=== PATIENT | female | born 1990 | race American Indian/Alaskan Native ===

== ENCOUNTER 2018-05-30 15:16 | Emergency (ER) | payer MEDICARE ==
[2018-05-30 15:43] VITALS: BMI 25.0
[2018-05-30 15:47] VITALS: RESP 20; TEMP 99.2
[2018-05-30 16:33] LABS: HCG,QUALITATIVE URINE NEGATIVE (NEGATIVE)
[2018-05-30] MEDS ORDERED: Penicillin G Benzathine 1.2 Mill Unit/2 ml Syr IM ONE ×2 (16:36→16:44)
[2018-05-30 16:37] LABS: SQUAMOUS EPITHIAL 7 /hpf (0-5); URINE BACTERIA OCC (<OCC); URINE BILIRUBIN NEGATIVE (NEGATIVE); URINE BLOOD NEGATIVE (NEGATIVE); URINE CLARITY Clear (Clear); URINE COLOR Yellow (YELLOW); URINE GLUCOSE (UA) NORMAL (Normal); URINE LEUKOCYTE ESTERASE TRACE Leu/uL (Negative); URINE PROTEIN NEGATIVE (NEGATIVE); URINE UROBILINOGEN NORMAL mg/dL (0.2-1.0)
[2018-05-30 16:44] LABS: BLOOD UREA NITROGEN 9 mg/dL (7-17); CALCIUM 9.8 mg/dl (8.6-10.4); GFR NON-AFRICAN AMERICAN > 60
[2018-05-30] MEDS ORDERED: Sodium Chloride 0.9% 1,000 ML ONE ×2 (16:44→16:59)
--- NOTE | 2018-05-30 16:45 | C.PDOC ---
History Of Present Illness 27 years old female with PMHx of SCD presents to ED for complaints of sore throat associated with subjective fever that began 2 days ago. Patient also reports mid chest pain with no SOB. Denies any other physical complaints. SORE THROAT, SUBJ FEVER X 2 DAYS. +MID CHEST PAIN NO SOB. HO SCD. DENIES OTHER ASSOC SX EXAM NONTOXIC HEENT +PHARYNGITIS W EXUDATE, MIN SWELL; NO DROOL, STRIDOR SUPPLE LUNGS CTA B/L NO W/R/R REMAINDER NEG Time Seen by Provider: 05/30/18 16:13 Chief Complaint (Nursing): Chest Pain History Per: Patient History/Exam Limitations: no limitations Onset/Duration Of Symptoms: Days (2) Current Symptoms Are (Timing): Still Present Recent travel outside of the [place]: No Past Medical History Reviewed: Historical Data, Nursing Documentation, Vital Signs Vital Signs: Last Vital Signs Temp 99.2 F 05/30/18 15:43 Pulse 78 05/30/18 15:43 Resp 20 05/30/18 15:43 BP 115/78 05/30/18 15:43 Pulse Ox 99 05/30/18 15:43 - Medical History PMH: Arthritis (left hip vascular necrosis), HTN, Kidney Stones, Sickle Cell Disease Denies: Chronic Kidney Disease Surgical History: Cholecystectomy - [facility] Procedures DESTRUCT-HIP LESION NEC (06/28/14) INSERTION OF INFUSION DEV INTO SUP VENA CAVA, PERC APPROACH (08/21/15) Family History: States: Unknown Family Hx - Social History Hx Tobacco Use: No Hx Alcohol Use: No Hx Substance Use: No - Immunization History Hx Tetanus Toxoid Vaccination: Yes Hx Influenza Vaccination: No Hx Pneumococcal Vaccination: No Review Of Systems Except As Marked, All Systems Reviewed And Found Negative. Constitutional: Positive for: Fever (Subjective ) ENT: Positive for: Other (Sore throat ) Cardiovascular: Positive for: Chest Pain (Mid Chest ) Physical Exam - Physical Exam Appears: Non-toxic, No Acute Distress Skin: Normal Color, Warm, Dry, No Rash Head: Atraumatic, Normacephalic Eye(s): bilateral: Normal Inspection, PERRL, EOMI Ear(s): Bilateral: Normal Nose: Normal, No Discharge Oral Mucosa: Moist Throat: Exudate (POSITIVE PHARYNGITIS WITH EXUDATE, MINIMAL SWELLING; NO DROOL, STRIDOR), No Drooling Neck: Supple Chest: Symmetrical, No Tenderness Cardiovascular: Rhythm Regular, No Murmur Respiratory: Normal Breath Sounds (Clear to Auscultation bilaterally ), No Decreased Breath Sounds, No Rales, No Rhonchi, No Wheezing, Other (NARD) Gastrointestinal/Abdominal: Bowel Sounds (Active), Soft, No Tenderness, No Distention, No Guarding, No Rebound Extremity: Bilateral: Atraumatic, Normal Color And Temperature, Normal ROM Pulses: Left Radial: Normal, Right Radial: Normal Neurological/Psych: Oriented x3, Normal Speech Gait: Steady ED Course And Treatment - Laboratory Results Result Diagrams: 05/30/18 17:14 05/30/18 16:28 ECG: Interpreted By Me, Viewed By Me ECG Rhythm: Sinus Rhythm (92), ST/T Changes (T- wave inversions 2-3f, V3. Unchanged from prior 04/13/18) O2 Sat by Pulse Oximetry: 99 (RA) Pulse Ox Interpretation: Normal - Other Rad CXR X-Ray: Viewed By Me, Read By Radiologist Interpretation: HISTORY: CHEST PAIN HO SCD. COMPARISON: None available. TECHNIQUE: Chest PA and lateral. FINDINGS: LUNGS: No focal consolidation. Please note that chest x-ray has limited sensitivity for the detection of pulmonary masses. PLEURA: No significant pleural effusion identified. No definite pneumothorax . CARDIOVASCULAR: Heart size appears top normal. OSSEOUS STRUCTURES: No acute osseous abnormality identified. VISUALIZED UPPER ABDOMEN: Unremarkable. OTHER FINDINGS: None. IMPRESSION: No focal consolidation, significant pleural effusion, or definite pneumothorax identified. Progress - Re-Evaluation Re-evaluation Note: 05/30/18 18:07 NAD APPEARS IMPROVED COMPARED TO INITIAL. VSS. PS THROAT PAIN RESOLVED, PERSIST LBP. VSS. NO UO SINCE IVF. PT CONTINUES TO REFUSE ADMISSION 05/30/18 18:57 PT REQUESTING DC. NAD NONTOXIC - Data Reviewed Data Reviewed: Lab, Diagnostic imaging, Old records Medical Decision Making Medical Decision Making: Plan: * IV fluids * Bicillin * Decadron * Dilaudid * Toradol * Blood work * CXR * UA Disposition Counseled Patient/Family Regarding: Studies Performed, Diagnosis, Need For Followup - Disposition Referrals: YOUR,PMD [Other] Disposition: HOME/ ROUTINE Disposition Time: 18:58 Condition: IMPROVED Instructions: Sore Throat, Adult (DC), Sickle Cell Disease (DC) Forms: [employer] (Turkish) - Clinical Impression Clinical Impression: Sickle-cell disease with pain, Pharyngitis
[2018-05-30 16:48] LABS: ALB/GLOB RATIO 1.3 (1.0-2.1); ALBUMIN 4.7 g/dL (3.5-5.0); ALT/SGPT 25 U/L (9-52); AST/SGOT 53 U/L (14-36)
[2018-05-30 17:17] LABS: BASO # 0.2 K/uL (0.0-0.2); BASO % 0.7 % (0.0-2.0); EOS # 0.3 K/uL (0.0-0.7); EOS % 1.4 % (0.0-4.0); HEMOGLOBIN 12.1 g/dL (11.0-16.0); LYMPH % 8.7 % (20.0-40.0); MEAN CELL VOLUME 101.5 fL (81.0-99.0); MEAN CORPUSCULAR HGB CONC 34.4 g/dL (33.0-37.0); MEAN PLATELET VOLUME 7.6 fL (7.2-11.7); MONO % 8.6 % (0.0-10.0); NEUT # 18.7 K/uL (1.8-7.0); NEUT % 80.6 % (50.0-75.0); NRBC % 0.1 % (0.0-2.0); PLATELET COUNT 290 K/uL (130-400); RBC 3.47 Mil/uL (3.80-5.20); RED CELL DISTRIBUTION WIDTH 15.9 % (11.5-14.5); WHITE BLOOD COUNT 23.2 K/uL (4.8-10.8)
--- NOTE | 2018-05-30 17:17 | RAD ---
HISTORY: CHEST PAIN HO SCD COMPARISON: None available. TECHNIQUE: Chest PA and lateral FINDINGS: LUNGS: No focal consolidation. Please note that chest x-ray has limited sensitivity for the detection of pulmonary masses. PLEURA: No significant pleural effusion identified. No definite pneumothorax . CARDIOVASCULAR: Heart size appears top normal. OSSEOUS STRUCTURES: No acute osseous abnormality identified. VISUALIZED UPPER ABDOMEN: Unremarkable. OTHER FINDINGS: None. IMPRESSION: No focal consolidation, significant pleural effusion, or definite pneumothorax identified.
[2018-05-30 17:50] LABS: EOSINOPHIL 1 % (0-4); LARGE PLATELETS PRESENT; LYMPHOCYTE 14 % (20-40); MONOCYTE 4 % (0-10); NEUTROPHIL 81 % (50-75); PLATELET ESTIMATE SLIGHTLY INCREASED (NORMAL); TOTAL CELLS COUNTED 100
[2018-05-30 17:57] VITALS: BP 115/74; PULSE 90
[2018-05-30 18:08] VITALS: O2SAT 99
--- NOTE | 2018-05-31 23:04 | CARD ---
APPROVED REPORT Date of service: 05/30/2018 EKG Measurement Heart [id number] CT [id number] [id number] <Conclusion> Normal sinus rhythm Possible Left atrial enlargement T wave abnormality, consider inferior ischemia Abnormal ECG
== END 2018-05-30 19:03 | disposition home or self-care (01) ==
LOC: C.ER 15:16
DX: J02.9 Acute pharyngitis, unspecified (principal); D57.1 Sickle-cell disease without crisis
CPT/HCPCS: 71046; 80053; 81001; 84484; 84703; 85025; 85044; 93005; 96361; 96372; 96374; 96375; 99285; J0561; J1100; J1885; J7030

== ENCOUNTER 2018-06-05 09:28 | Emergency (ER) | payer MEDICAID, MEDICARE ==
[2018-06-05 09:28] VITALS: BMI 25.0
[2018-06-05 09:36] VITALS: BP 110/65; PULSE 90; RESP 18; TEMP 98.4; O2SAT 97
[2018-06-05] MEDS ORDERED: Amoxicillin-Clav 875-125 mg Tab PO STA (09:59)
--- NOTE | 2018-06-05 10:02 | C.PDOC ---
History Of Present Illness 27 year old female presents to ED complaining of sore throat x1 week associated with body aches. Patient states she came to ED on 06/03 for same symptoms and received 1.2 million units of Bicillin with no improvement of symptoms. Patient reports she has been taking her pain medication without taking NSAIDs. Denies fever, chills, cough, shortness of breath, weakness, numbness. Time Seen by Provider: 06/05/18 09:44 Chief Complaint (Nursing): Cough, Cold, Congestion History Per: Patient History/Exam Limitations: None Onset/Duration Of Symptoms: Days Current Symptoms Are (Timing): Still Present Past Medical History Reviewed: Historical Data, Nursing Documentation, Vital Signs Vital Signs: Last Vital Signs Temp 98.4 F 06/05/18 09:30 Pulse 90 06/05/18 09:30 Resp 18 06/05/18 09:30 BP 110/65 06/05/18 09:30 Pulse Ox 97 06/05/18 09:30 - Medical History PMH: Arthritis (left hip vascular necrosis), HTN, Kidney Stones, Rheumatoid Arthritis, Sickle Cell Disease Denies: Chronic Kidney Disease Surgical History: Cholecystectomy - [facility] Procedures DESTRUCT-HIP LESION NEC (06/28/14) INSERTION OF INFUSION DEV INTO SUP VENA CAVA, PERC APPROACH (08/21/15) Family History: States: No Known Family Hx - Social History Hx Tobacco Use: No Hx Alcohol Use: No Hx Substance Use: No - Immunization History Hx Tetanus Toxoid Vaccination: Yes Hx Influenza Vaccination: No Hx Pneumococcal Vaccination: No Review Of Systems Except As Marked, All Systems Reviewed And Found Negative. Constitutional: Negative for: Fever, Chills ENT: Positive for: Throat Pain (Sore throat x1 week) Cardiovascular: Negative for: Chest Pain Respiratory: Negative for: Cough, Shortness of Breath Gastrointestinal: Negative for: Nausea, Vomiting Musculoskeletal: Positive for: Other (Generalized body aches.) Neurological: Negative for: Weakness, Numbness Physical Exam - Physical Exam Appears: Non-toxic, No Acute Distress Skin: Warm, Dry Head: Atraumatic, Normacephalic Eye(s): bilateral: PERRL, EOMI Oral Mucosa: Moist Gingiva: Other Throat: Exudate (Tonsilar bilateral exudative pharyngitis) Neck: Supple Lymphatic: Other ((+) submandibular lymphadenopathy) Chest: Symmetrical, No Deformity Cardiovascular: Rhythm Regular, No Murmur Respiratory: Normal Breath Sounds, No Rales, No Rhonchi, No Wheezing Gastrointestinal/Abdominal: Soft, No Tenderness Neurological/Psych: Oriented x3, Normal Speech ED Course And Treatment O2 Sat by Pulse Oximetry: 97 (RA) Pulse Ox Interpretation: Normal Medical Decision Making Medical Decision Making: + b/l exudative pharyngitis failed Bicillin 1.2M units given 05/30 Course with 9 days Augmentin PO NSAIDS for throat pain Disposition Doctor Will See Patient In The: Office Counseled Patient/Family Regarding: Studies Performed, Diagnosis - Disposition Referrals: Chris Lopez MD [Medical Doctor] - Disposition: HOME/ ROUTINE Disposition Time: 10:02 Condition: GOOD Additional Instructions: continue Augmentin (antibiotic) twice a day for 9 days Motrin/Advil 400-600 mg every 6 hours as needed for throat pain Follow-up with Dr. Lopez for re-eval in 2-3 days Prescriptions: Amoxicillin/Clavulanate [Augmentin 875 MG-125 MG] 1 tab PO BID #15 tab Instructions: Sore Throat, Adult (DC) Forms: [employer] (Irish) - Clinical Impression Clinical Impression: Tonsillitis with exudate - Scribe Statement The provider has reviewed the documentation as recorded by the Arpita Smallwood Kyler Provider Attestation: All medical record entries made by the Arpita were at my direction and personally dictated by me. I have reviewed the chart and agree that the record accurately reflects my personal performance of the history, physical exam, medical decision making, and the department course for this patient. I have also personally directed, reviewed, and agree with the discharge instructions and disposition.
[2018-06-05] MEDS ORDERED: Amoxicillin-Clav 875-125 mg Tab PO ONE (10:11)
== END 2018-06-05 10:26 | disposition home or self-care (01) ==
LOC: C.ER 09:28
DX: J03.90 Acute tonsillitis, unspecified (principal)

== ENCOUNTER 2018-07-14 19:48 | Emergency (ER) | payer MEDICARE ==
[2018-07-14 19:49] VITALS: BMI 25.0
[2018-07-14 20:17] VITALS: O2SAT 99
--- NOTE | 2018-07-14 21:42 | C.PDOC ---
History Of Present Illness Patient presents to the ER with a complaint of diffuse body aches. 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 She took 15mg oxycodon at 1600 with no relief. Patient is currently speaking in complete sentences. Denies fever, chills, nausea, or vomiting. Time Seen by Provider: 07/14/18 21:38 Chief Complaint (Nursing): Chest Pain History Per: Patient History/Exam Limitations: no limitations Onset/Duration Of Symptoms: Hrs Current Symptoms Are (Timing): Still Present Severity: Moderate Pain Scale Rating Of: 4 Quality: Dull, Aching Associated Symptoms: denies: Nausea, Dyspnea, Diaphoresis, Syncope Modifying Factors: None Exacerbating Factors: None Alleviating Factors: None Recent travel outside of the [place]: No Additional History Per: Patient Past Medical History Reviewed: Historical Data, Nursing Documentation, Vital Signs Vital Signs: Last Vital Signs Temp 98.3 F 07/14/18 20:17 Pulse 74 07/14/18 20:17 Resp 14 07/14/18 20:17 BP 107/63 07/14/18 20:17 Pulse Ox 99 07/14/18 20:17 - Medical History PMH: Arthritis (left hip vascular necrosis), HTN, Kidney Stones, Rheumatoid Arthritis, Sickle Cell Disease Denies: Chronic Kidney Disease Surgical History: Cholecystectomy - [facility] Procedures DESTRUCT-HIP LESION NEC (06/28/14) INSERTION OF INFUSION DEV INTO SUP VENA CAVA, PERC APPROACH (08/21/15) Family History: States: No Known Family Hx - Social History Hx Tobacco Use: No Hx Alcohol Use: No Hx Substance Use: No - Immunization History Hx Tetanus Toxoid Vaccination: Yes Hx Influenza Vaccination: No Hx Pneumococcal Vaccination: No Review Of Systems Constitutional: Negative for: Fever, Chills ENT: Negative for: Throat Pain Cardiovascular: Negative for: Chest Pain, Palpitations Respiratory: Negative for: Cough, Shortness of Breath Gastrointestinal: Negative for: Nausea, Vomiting Musculoskeletal: Positive for: Other (Diffuse body aches) Skin: Negative for: Rash Neurological: Negative for: Weakness, Numbness Psych: Negative for: Anxiety Physical Exam - Physical Exam Appears: Non-toxic, No Acute Distress Skin: Warm, Dry Head: Normacephalic Eye(s): bilateral: Normal Inspection Oral Mucosa: Moist Neck: Trachea Midline, Supple Chest: Symmetrical, No Tenderness Cardiovascular: Rhythm Regular Respiratory: No Rales, No Rhonchi, No Wheezing Gastrointestinal/Abdominal: Soft, No Tenderness Back: Normal Inspection Extremity: Normal ROM, Other (Moves all extremities) Extremity: Bilateral: Atraumatic, Normal Color And Temperature, Normal ROM Neurological/Psych: Oriented x3 Gait: Steady ED Course And Treatment - Laboratory Results Result Diagrams: 07/14/18 21:57 07/14/18 22:27 ECG: Interpreted By Me, Viewed By Me ECG Rhythm: Sinus Rhythm (76), Nonspecific Changes O2 Sat by Pulse Oximetry: 99 (Room air) Pulse Ox Interpretation: Normal - Radiology CXR: Interpreted by Me, Viewed By Me Progress Note: Blood work, EKG, flu swab, and urinalysis ordered. IV fluids administered. after her second dose of po dilaudid, pt wants to leave because she wanted to get the dilaudid IV. Pt appears in no acute distress, vitals stable. Disposition Counseled Patient/Family Regarding: Studies Performed, Diagnosis, Need For Followup - Disposition Referrals: [facility] [Outside] Disposition: HOME/ ROUTINE Disposition Time: 23:00 Condition: FAIR Additional Instructions: Please return if symptoms recur Instructions: Sickle Cell Disease (DC) Forms: [employer] [facility] (Indonesian) - Clinical Impression Clinical Impression: Sickle-cell disease with pain, Myalgia - Scribe Statement The provider has reviewed the documentation as recorded by the Scribmigel Arnold All medical record entries made by the Scribe were at my direction and personally dictated by me. I have reviewed the chart and agree that the record accurately reflects my personal performance of the history, physical exam, medical decision making, and the department course for this patient. I have also personally directed, reviewed, and agree with the discharge instructions and disposition.
[2018-07-14] MEDS ORDERED: Sodium Chloride 0.9% 1,000 ML IV ONE (21:45)
[2018-07-14 22:02] LABS: BASO # 0.2 K/uL (0.0-0.2); BASO % 1.6 % (0.0-2.0); EOS # 0.2 K/uL (0.0-0.7); EOS % 1.9 % (0.0-4.0); HEMOGLOBIN 12.3 g/dL (11.0-16.0); LYMPH # 4.8 K/uL (1.0-4.3); LYMPH % 50.2 % (20.0-40.0); MEAN CELL VOLUME 99.6 fL (81.0-99.0); MEAN CORPUSCULAR HEMOGLOBIN 34.9 pg (27.0-31.0); MEAN PLATELET VOLUME 7.6 fL (7.2-11.7); MONO # 1.1 K/uL (0.0-0.8); NEUT # 3.3 K/uL (1.8-7.0); NEUT % 34.3 % (50.0-75.0); NRBC % 0.2 % (0.0-2.0); RBC 3.54 Mil/uL (3.80-5.20); RED CELL DISTRIBUTION WIDTH 16.6 % (11.5-14.5); WHITE BLOOD COUNT 9.6 K/uL (4.8-10.8)
[2018-07-14 22:31] LABS: HCG,QUALITATIVE URINE NEGATIVE (NEGATIVE)
[2018-07-14 22:35] LABS: SQUAMOUS EPITHIAL 1 /hpf (0-5); URINE BILIRUBIN NEGATIVE (NEGATIVE); URINE BLOOD 1+ (NEGATIVE); URINE CLARITY Clear (Clear); URINE COLOR Yellow (YELLOW); URINE GLUCOSE (UA) NORMAL (Normal); URINE LEUKOCYTE ESTERASE TRACE Leu/uL (Negative); URINE PROTEIN NEGATIVE (NEGATIVE); URINE UROBILINOGEN NORMAL mg/dL (0.2-1.0)
[2018-07-14 22:42] LABS: INR 1.2; PROTHROMBIN TIME 12.8 SECONDS (9.7-12.2)
[2018-07-14 22:47] LABS: ALB/GLOB RATIO 1.4 (1.0-2.1); ALBUMIN 4.7 g/dL (3.5-5.0); ALT/SGPT 21 U/L (9-52); AST/SGOT 28 U/L (14-36); BLOOD UREA NITROGEN 14 mg/dL (7-17); CALCIUM 9.1 mg/dl (8.6-10.4); GFR NON-AFRICAN AMERICAN > 60
[2018-07-14] MEDS ORDERED: Sodium Chloride 0.9% 1,000 ML ONE (22:49)
[2018-07-14 23:19] LABS: VENOUS BLOOD GAS BASE EXCESS 2.5 mmol/L (0.0-2.0); VENOUS BLOOD GAS PCO2 48 mmHg (40-60); VENOUS BLOOD GAS PO2 39 mm/Hg (30-55); VENOUS BLOOD PH 7.38 (7.32-7.43)
[2018-07-14 23:54] VITALS: BP 111/66; PULSE 76; RESP 16; TEMP 98.2
[2018-07-15] MEDS ORDERED: Sodium Chloride 0.9% 1,000 ML IV ONE (00:18)
[2018-07-15] MEDS ORDERED: Sodium Chloride 0.9% 1,000 ML ONE (00:26)
--- NOTE | 2018-07-16 17:40 | CARD ---
APPROVED REPORT Date of service: 07/14/2018 EKG Measurement Heart [id number] <Conclusion> Normal sinus rhythm T wave abnormality, consider inferior ischemia Abnormal ECG
== END 2018-07-15 00:52 | disposition home or self-care (01) ==
LOC: C.ER 19:48
DX: D57.1 Sickle-cell disease without crisis (principal); M79.10 Myalgia, unspecified site; I10 Essential (primary) hypertension; M06.9 Rheumatoid arthritis, unspecified
CPT/HCPCS: 80053; 81001; 82803; 84703; 85025; 85044; 85610; 85730; 87804; 93005; 96374; 99283; J1885; J7030

== ENCOUNTER 2018-12-27 02:42 | Observation (INO) | payer MEDICARE ==
[2018-12-27 02:42] VITALS: BMI 25.0
[2018-12-27] MEDS ORDERED: Sodium Chloride 0.9% 1,000 ML IV STA (03:12)
[2018-12-27] MEDS ORDERED: HYDROmorphone 1 mg/ml ISec IVP STA (03:12)
--- NOTE | 2018-12-27 03:16 | C.PDOC ---
History Of Present Illness patient w/ hx sickle cell presents to the ER with c/o chest pain, hand pain and bilateral leg pain that started several hours ago. she states she was discharge from [facility] [place] yesterday morning after being treated for crisis. she states she takes oxycodone 15mg po at home for pain and is compliant with hydroxyurea. Time Seen by Provider: 12/27/18 02:50 Chief Complaint (Nursing): Chest Pain History Per: Patient History/Exam Limitations: no limitations Onset/Duration Of Symptoms: Hrs Current Symptoms Are (Timing): Still Present Severity: Severe Past Medical History Vital Signs: Last Vital Signs Temp 98.4 F 12/27/18 02:51 Pulse 84 12/27/18 02:51 Resp 20 12/27/18 02:51 BP 122/72 12/27/18 02:51 Pulse Ox 98 12/27/18 02:51 Primary Care Provider: Sonido Hill - Medical History PMH: Arthritis (left hip vascular necrosis), HTN, Kidney Stones, Rheumatoid Arthritis, Sickle Cell Disease Denies: Chronic Kidney Disease Surgical History: Cholecystectomy - [facility] Procedures DESTRUCT-HIP LESION NEC (06/28/14) INSERTION OF INFUSION DEV INTO SUP VENA CAVA, PERC APPROACH (08/21/15) Family History: States: Unknown Family Hx - Social History Hx Tobacco Use: No Hx Alcohol Use: No Hx Substance Use: No - Immunization History Hx Tetanus Toxoid Vaccination: Yes Hx Influenza Vaccination: No Hx Pneumococcal Vaccination: No Review Of Systems Constitutional: Negative for: Fever, Chills, Weakness Cardiovascular: Positive for: Chest Pain. Negative for: Palpitations Respiratory: Negative for: Cough, Shortness of Breath, SOB with Excertion Gastrointestinal: Negative for: Nausea, Vomiting, Abdominal Pain, Constipation Genitourinary: Negative for: Dysuria, Hematuria Musculoskeletal: Positive for: Hand Pain, Leg Pain Skin: Negative for: Rash Neurological: Negative for: Weakness, Numbness Physical Exam - Physical Exam Appears: Well, In Acute Distress (appears mildly uncomfortable) Skin: Normal Color, Warm, No Jaundice Head: Atraumatic, Normacephalic Eye(s): bilateral: Normal Inspection, PERRL, EOMI Oral Mucosa: Moist Throat: Normal Neck: Normal, Normal ROM Chest: Symmetrical, No Tenderness Cardiovascular: Rhythm Regular Respiratory: Normal Breath Sounds, No Accessory Muscle Use, No Rales, No Stridor, No Wheezing Gastrointestinal/Abdominal: Normal Exam, Soft, No Tenderness Back: Normal Inspection, Paraspinal Tenderness Extremity: Normal ROM, Tenderness (TTP throughtout legs bilaterally, no swelling or erythema) Extremity: Bilateral: Atraumatic, Normal ROM Pulses: Left Radial: Normal, Right Radial: Normal Neurological/Psych: Oriented x3, Normal Speech, Normal Cognition ED Course And Treatment - Laboratory Results Result Diagrams: 12/27/18 03:24 12/27/18 03:24 O2 Sat by Pulse Oximetry: 98 Progress Note: patient reported mild pain relief after first dose of dilaudid 16mg po after an hour. she received a second dose of dilaudid 8mg po and reports no improvement in pain symptoms. she agrees to be admitted for pain control. Medical Decision Making Medical Decision Making: patient remains hemodynamically stable throughout ER stay Disposition - Disposition Disposition: HOSPITALIZED Disposition Time: 06:40 Condition: STABLE Forms: [facility] (Burundian) - Clinical Impression Clinical Impression: Sickle cell pain crisis Decision To Admit - Pt Status Changed To: Hospital Disposition Of: Observation - . Bed Request Type: Regular Admitting Physician: iNeves Arredondo Patient Diagnosis: Sickle cell pain crisis
[2018-12-27] MEDS ORDERED: Sodium Chloride 0.9% 1,000 ML ONE (03:23)
[2018-12-27 03:27] LABS: BASO # 0.2 K/uL (0.0-0.2); BASO % 1.6 % (0.0-2.0); EOS # 0.8 K/uL (0.0-0.7); EOS % 5.2 % (0.0-4.0); HEMOGLOBIN 9.5 g/dL (11.0-16.0); LYMPH # 5.7 K/uL (1.0-4.3); LYMPH % 36.4 % (20.0-40.0); MEAN CELL VOLUME 101.1 fL (81.0-99.0); MEAN CORPUSCULAR HEMOGLOBIN 35.5 pg (27.0-31.0); MEAN CORPUSCULAR HGB CONC 35.1 g/dL (33.0-37.0); MEAN PLATELET VOLUME 7.3 fL (7.2-11.7); MONO # 1.4 K/uL (0.0-0.8); NEUT # 7.5 K/uL (1.8-7.0); NEUT % 47.8 % (50.0-75.0); NRBC % 0.7 % (0.0-2.0); RBC 2.68 Mil/uL (3.80-5.20); RED CELL DISTRIBUTION WIDTH 19.7 % (11.5-14.5); WHITE BLOOD COUNT 15.7 K/uL (4.8-10.8)
[2018-12-27 03:37] LABS: HCG,QUALITATIVE URINE NEGATIVE (NEGATIVE)
[2018-12-27 03:42] LABS: URINE BILIRUBIN NEGATIVE (NEGATIVE); URINE BLOOD NEGATIVE (NEGATIVE); URINE CLARITY Hazy (Clear); URINE COLOR Yellow (YELLOW); URINE GLUCOSE (UA) NORMAL (Normal); URINE PROTEIN NEGATIVE (NEGATIVE)
[2018-12-27 03:43] LABS: SQUAMOUS EPITHIAL 1 /hpf (0-5); URINE BACTERIA MANY (<OCC); URINE LEUKOCYTE ESTERASE 2+ Leu/uL (Negative)
[2018-12-27 03:43] LABS: ALB/GLOB RATIO 1.4 (1.0-2.1); ALBUMIN 3.9 g/dL (3.5-5.0); ALT/SGPT 20 U/L (9-52); AST/SGOT 17 U/L (14-36); BLOOD UREA NITROGEN 16 mg/dL (7-17); CALCIUM 8.5 mg/dl (8.6-10.4); GFR NON-AFRICAN AMERICAN > 60
[2018-12-27 08:30] VITALS: RESP 20
[2018-12-27] MEDS ORDERED: oxyCODONE 20 mg ER Tab (oxyCONTIN) PO STA (09:20)
[2018-12-27] MEDS: DiphenhydrAMINE 50 mg/ml Inj IVP PRN ×2 (09:36→20:02)
[2018-12-27] MEDS: HYDROmorphone 0.5 mg/0.5 ml ISec IVP PRN ×2 (09:36→15:46)
--- NOTE | 2018-12-27 10:01 | RAD ---
Chest x-ray two views HISTORY: Chest pain. COMPARISON: 05/30/2018 FINDINGS: No focal infiltrate or effusion. Heart size within normal limits. Bibasilar breast and nipple shadows. Impression: No focal infiltrate or effusion.
[2018-12-27] MEDS ORDERED: Dextrose 5%/0.45% NS 1,000 ML IV SCH (11:00)
--- NOTE | 2018-12-27 16:46 | CP.PCM.HP ---
History of Present Illness - History of Present Illness History of Present Illness: 28 year old female with a history of sickle cell anemia, admitted with sickle cell pain crisis. The patient was discharged from [facility] on Thursday for sickle cell pain crisis. She notes that within 24 hours she began having worsening r ib, back, hip and leg pain consistent with prior sickle cell pain. She feels her pain was exacerbated by the weather. She denies shortness of breath.pt consstnatly neeeded high dose med d/w dr. feng Past medical history: Sickle cell anemia Family history: Brother has sickle cell anemia Social history: Smokes marijuana Allergies: NKA Review of systems: All remaining review of systems including HEENT, cardiovascular, respiratory, gastrointestinal, genitourinary, musculoskeletal, dermatologic, neurologic, and psychiatric are negative unless mentioned in the HPI. Past Patient History - Infectious Disease Hx of Infectious Diseases: None - Past Medical History & Family History Past Medical History?: Yes - Past Social History Smoking Status: Never Smoked - CARDIAC Hx Hypertension: Yes - PULMONARY Hx Respiratory Disorders: No - NEUROLOGICAL Hx Neurological Disorder: No - HEENT Hx HEENT Problems: No - RENAL Hx Chronic Kidney Disease: No Hx Kidney Stones: Yes - ENDOCRINE/METABOLIC Hx Endocrine Disorders: Yes - HEMATOLOGICAL/ONCOLOGICAL Hx Sickle Cell Disease: Yes - INTEGUMENTARY Hx Dermatological Problems: No - MUSCULOSKELETAL/RHEUMATOLOGICAL Hx Arthritis: Yes (left hip vascular necrosis) Hx Rheumatoid Arthritis: Yes - GASTROINTESTINAL Hx Gastrointestinal Disorders: No - GENITOURINARY/GYNECOLOGICAL Hx Genitourinary Disorders: No - PSYCHIATRIC Hx Substance Use: No - SURGICAL HISTORY Hx Cholecystectomy: Yes - ANESTHESIA Hx Anesthesia: Yes Hx Anesthesia Reactions: No Hx Malignant Hyperthermia: No Meds Allergies/Adverse Reactions: Allergies Allergy/AdvReac Type Severity Reaction Status Date / Time No Known Allergies Allergy Verified 12/27/18 02:56 Physical Exam - Constitutional Appears: Well - Head Exam Head Exam: ATRAUMATIC, NORMAL INSPECTION, NORMOCEPHALIC - Eye Exam Eye Exam: EOMI, Normal appearance, PERRL Pupil Exam: NORMAL ACCOMODATION, PERRL - ENT Exam ENT Exam: Mucous Membranes Moist, Normal Exam - Neck Exam Neck exam: Positive for: Normal Inspection - Respiratory Exam Respiratory Exam: Decreased Breath Sounds - Cardiovascular Exam Cardiovascular Exam: REGULAR RHYTHM, +S1, +S2 - GI/Abdominal Exam GI & Abdominal Exam: Diminished Bowel Sounds, Soft - Rectal Exam Rectal Exam: Deferred - Neurological Exam Neurological exam: Oriented x3 Results - Vital Signs Recent Vital Signs: Last Vital Signs Temp 98.3 F 12/27/18 08:30 Pulse 85 12/27/18 08:30 Resp 20 12/27/18 08:30 BP 111/74 12/27/18 08:30 Pulse Ox 97 12/27/18 08:30 - Labs Result Diagrams: 12/27/18 03:24 12/27/18 03:24 Labs: Laboratory Results - last 24 hr 12/27/18 12/27/18 12/27/18 03:10 03:24 03:24 WBC 15.7 H D RBC 2.68 L Hgb 9.5 L D Hct 27.1 L MCV 101.1 H MCH 35.5 H MCHC 35.1 RDW 19.7 H Plt Count 378 MPV 7.3 Neut % (Auto) 47.8 L Lymph % (Auto) 36.4 [place] % (Auto) 9.0 Eos % (Auto) 5.2 H Baso % (Auto) 1.6 Neut # (Auto) 7.5 H Lymph # (Auto) 5.7 H [place] # (Auto) 1.4 H Eos # (Auto) 0.8 H Baso # (Auto) 0.2 Retic Count 9.5 H D Sodium 142 Potassium 3.8 Chloride 105 Carbon Dioxide 27 Anion Gap 14 BUN 16 Creatinine 0.6 L Est GFR ( Amer) > 60 Est GFR (Non-Af Amer) > 60 Random Glucose 98 Calcium 8.5 L Total Bilirubin 1.9 H AST 17 ALT 20 Alkaline Phosphatase 66 Total Protein 6.7 Albumin 3.9 Globulin 2.8 Albumin/Globulin Ratio 1.4 Urine Color Yellow Urine Clarity Hazy Urine pH 6.0 Ur Specific Blue 1.010 Urine Protein Negative Urine Glucose (UA) Normal Urine Ketones Negative Urine Blood Negative Urine Nitrate Positive H Urine Bilirubin Negative Urine Urobilinogen 4.0 H Ur Leukocyte Esterase 2+ H Urine WBC (Auto) 23 H Urine RBC (Auto) 2 Ur Squamous Epith Cells 1 Urine Bacteria Many H Urine HCG, Qual Negative
--- NOTE | 2018-12-27 21:37 | CP.PCM.CON ---
History of Present Illness - History of Present Illness History of Present Illness: 28 year old female with a history of sickle cell anemia, admitted with sickle cell pain crisis. The patient was discharged from [facility] on Thursday for sickle cell pain crisis. She notes that within 24 hours she began having worsening r ib, back, hip and leg pain consistent with prior sickle cell pain. She feels her pain was exacerbated by the weather. She denies shortness of breath. Past medical history: Sickle cell anemia Family history: Brother has sickle cell anemia Social history: Smokes marijuana Allergies: NKA Review of systems: All remaining review of systems including HEENT, cardiovascular, respiratory, gastrointestinal, genitourinary, musculoskeletal, dermatologic, neurologic, and psychiatric are negative unless mentioned in the HPI. Past Patient History - Infectious Disease Hx of Infectious Diseases: None - Past Medical History & Family History Past Medical History?: Yes - Past Social History Smoking Status: Never Smoked - CARDIAC Hx Hypertension: Yes - PULMONARY Hx Respiratory Disorders: No - NEUROLOGICAL Hx Neurological Disorder: No - HEENT Hx HEENT Problems: No - RENAL Hx Chronic Kidney Disease: No Hx Kidney Stones: Yes - ENDOCRINE/METABOLIC Hx Endocrine Disorders: Yes - HEMATOLOGICAL/ONCOLOGICAL Hx Sickle Cell Disease: Yes - INTEGUMENTARY Hx Dermatological Problems: No - MUSCULOSKELETAL/RHEUMATOLOGICAL Hx Arthritis: Yes (left hip vascular necrosis) Hx Rheumatoid Arthritis: Yes - GASTROINTESTINAL Hx Gastrointestinal Disorders: No - GENITOURINARY/GYNECOLOGICAL Hx Genitourinary Disorders: No - PSYCHIATRIC Hx Substance Use: No - SURGICAL HISTORY Hx Cholecystectomy: Yes - ANESTHESIA Hx Anesthesia: Yes Hx Anesthesia Reactions: No Hx Malignant Hyperthermia: No Meds Allergies/Adverse Reactions: Allergies Allergy/AdvReac Type Severity Reaction Status Date / Time No Known Allergies Allergy Verified 12/27/18 02:56 - Medications Medications: Current Medications Diphenhydramine HCl (Benadryl) 25 mg IVP Q6 PRN PRN Reason: Other Last Admin: 12/27/18 20:02 Dose: 25 mg Folic Acid (Folic Acid) 1 mg PO DAILY [facility] Last Admin: 12/27/18 10:56 Dose: 1 mg Hydromorphone HCl (Dilaudid) 2 mg IVP Q4H PRN PRN Reason: Pain, severe (8-10) Dextrose/Sodium Chloride (Dextrose 5%/0.45% Ns 1000 Ml) 1,000 mls @ 75 mls/hr IV .[id number] [facility] Last Admin: 12/27/18 10:56 Dose: 75 mls/hr Physical Exam - Head Exam Head Exam: ATRAUMATIC - Eye Exam Eye Exam: Normal appearance - ENT Exam ENT Exam: Mucous Membranes Dry - Respiratory Exam Respiratory Exam: NORMAL BREATHING PATTERN - Cardiovascular Exam Cardiovascular Exam: +S1, +S2 - GI/Abdominal Exam GI & Abdominal Exam: Normal Bowel Sounds - Extremities Exam Extremities exam: Positive for: normal inspection - Neurological Exam Neurological exam: Oriented x3 - Psychiatric Exam Psychiatric exam: Normal Affect, Normal Mood - Skin Skin Exam: Warm Results - Vital Signs Recent Vital Signs: Last Vital Signs Temp 97.6 F 12/27/18 16:00 Pulse 91 H 12/27/18 16:00 Resp 20 12/27/18 16:00 BP 127/77 12/27/18 16:00 Pulse Ox 96 12/27/18 16:00 - Labs Result Diagrams: 12/27/18 03:24 12/27/18 03:24 Labs: Laboratory Results - last 24 hr 12/27/18 12/27/18 12/27/18 03:10 03:24 03:24 WBC 15.7 H D RBC 2.68 L Hgb 9.5 L D Hct 27.1 L MCV 101.1 H MCH 35.5 H MCHC 35.1 RDW 19.7 H Plt Count 378 MPV 7.3 Neut % (Auto) 47.8 L Lymph % (Auto) 36.4 [place] % (Auto) 9.0 Eos % (Auto) 5.2 H Baso % (Auto) 1.6 Neut # (Auto) 7.5 H Lymph # (Auto) 5.7 H [place] # (Auto) 1.4 H Eos # (Auto) 0.8 H Baso # (Auto) 0.2 Retic Count 9.5 H D Sodium 142 Potassium 3.8 Chloride 105 Carbon Dioxide 27 Anion Gap 14 BUN 16 Creatinine 0.6 L Est GFR ( Amer) > 60 Est GFR (Non-Af Amer) > 60 Random Glucose 98 Calcium 8.5 L Total Bilirubin 1.9 H AST 17 ALT 20 Alkaline Phosphatase 66 Total Protein 6.7 Albumin 3.9 Globulin 2.8 Albumin/Globulin Ratio 1.4 Urine Color Yellow Urine Clarity Hazy Urine pH 6.0 Ur Specific [place] 1.010 Urine Protein Negative Urine Glucose (UA) Normal Urine Ketones Negative Urine Blood Negative Urine Nitrate Positive H Urine Bilirubin Negative Urine Urobilinogen 4.0 H Ur Leukocyte Esterase 2+ H Urine WBC (Auto) 23 H Urine RBC (Auto) 2 Ur Squamous Epith Cells 1 Urine Bacteria Many H Urine HCG, Qual Negative Assessment & Plan (1) Sickle cell pain crisis Assessment and Plan: IV fluids, folic acid, 02 via NC, pain meds. requiring frequent and higher doses of narcotics to control pain; recommend pain management evaluation no current transfusion indication Status: Acute (2) Sickle cell disease Assessment and Plan: folic acid and hydrea Thank you for this interesting consult. Status: Acute
[2018-12-27] MEDS: Dextrose 5%/0.45% NS 1,000 ML IV SCH ×2 (22:27→23:24)
--- NOTE | 2018-12-27 23:05 | CP.PCM.CON ---
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 Patient with recent admission for sickle cell crisis at [facility] and discharged a few days ago. She was taking oxycodone at home with no relief so she came to the Emergency [facility] epartment when pain worsened. She states she has sharp diffuse pain in the ribs, hips, back, and all extremities. Denies any other symptoms including fever, shortness of breath, n/v, chest pain, or signs of stroke. Past Patient History - Infectious Disease Hx of Infectious Diseases: None - Past Medical History & Family History Past Medical History?: Yes - Past Social History Smoking Status: Never Smoked - CARDIAC Hx Hypertension: Yes - PULMONARY Hx Respiratory Disorders: No - NEUROLOGICAL Hx Neurological Disorder: No - HEENT Hx HEENT Problems: No - RENAL Hx Chronic Kidney Disease: No Hx Kidney Stones: Yes - ENDOCRINE/METABOLIC Hx Endocrine Disorders: Yes - HEMATOLOGICAL/ONCOLOGICAL Hx Sickle Cell Disease: Yes - INTEGUMENTARY Hx Dermatological Problems: No - MUSCULOSKELETAL/RHEUMATOLOGICAL Hx Arthritis: Yes (left hip vascular necrosis) Hx Rheumatoid Arthritis: Yes - GASTROINTESTINAL Hx Gastrointestinal Disorders: No - GENITOURINARY/GYNECOLOGICAL Hx Genitourinary Disorders: No - PSYCHIATRIC Hx Substance Use: No - SURGICAL HISTORY Hx Cholecystectomy: Yes - ANESTHESIA Hx Anesthesia: Yes Hx Anesthesia Reactions: No Hx Malignant Hyperthermia: No Meds Allergies/Adverse Reactions: Allergies Allergy/AdvReac Type Severity Reaction Status Date / Time No Known Allergies Allergy Verified 12/27/18 02:56 - Medications Medications: Current Medications Diphenhydramine HCl (Benadryl) 25 mg IVP Q6 PRN PRN Reason: Other Last Admin: 12/27/18 20:02 Dose: 25 mg Folic Acid (Folic Acid) 1 mg PO DAILY [facility] Last Admin: 12/27/18 10:56 Dose: 1 mg Hydromorphone HCl (Dilaudid) 2 mg IVP Q4H PRN PRN Reason: Pain, severe (8-10) Dextrose/Sodium Chloride (Dextrose 5%/0.45% Ns 1000 Ml) 1,000 mls @ 150 mls/hr IV .Q6H40M [facility] Last Admin: 12/27/18 22:27 Dose: Not Given Ketorolac Tromethamine (Toradol) 30 mg IVP Q6 [facility] Physical Exam - Constitutional Appears: In Acute Distress - Respiratory Exam Respiratory Exam: Clear to Auscultation Bilateral, NORMAL BREATHING PATTERN - Cardiovascular Exam Cardiovascular Exam: REGULAR RHYTHM, RRR - GI/Abdominal Exam GI & Abdominal Exam: Normal Bowel Sounds, Soft - Extremities Exam Extremities exam: Positive for: normal inspection Additional comments: warm, well perfused, pulses intact - Back Exam Back exam: NORMAL INSPECTION - Neurological Exam Neurological exam: Alert, CN II-XII Intact - Skin Skin Exam: Normal Color Results - Vital Signs Recent Vital Signs: Last Vital Signs Temp 97.6 F 12/27/18 16:00 Pulse 91 H 12/27/18 16:00 Resp 20 12/27/18 16:00 BP 127/77 12/27/18 16:00 Pulse Ox 96 12/27/18 16:00 - Labs Result Diagrams: 12/27/18 03:24 12/27/18 03:24 Labs: Laboratory Results - last 24 hr 12/27/18 12/27/18 12/27/18 03:10 03:24 03:24 WBC 15.7 H D RBC 2.68 L Hgb 9.5 L D Hct 27.1 L MCV 101.1 H MCH 35.5 H MCHC 35.1 RDW 19.7 H Plt Count 378 MPV 7.3 Neut % (Auto) 47.8 L Lymph % (Auto) 36.4 [place] % (Auto) 9.0 Eos % (Auto) 5.2 H Baso % (Auto) 1.6 Neut # (Auto) 7.5 H Lymph # (Auto) 5.[address] [place] # (Auto) 1.4 H Eos # (Auto) 0.8 H Baso # (Auto) 0.2 Retic Count 9.5 H D Sodium 142 Potassium 3.8 Chloride 105 Carbon Dioxide 27 Anion Gap 14 BUN 16 Creatinine 0.6 L Est GFR ( Amer) > 60 Est GFR (Non-Af Amer) > 60 Random Glucose 98 Calcium 8.5 L Total Bilirubin 1.9 H AST 17 ALT 20 Alkaline Phosphatase 66 Total Protein 6.7 Albumin 3.9 Globulin 2.8 Albumin/Globulin Ratio 1.4 Urine Color Yellow Urine Clarity Hazy Urine pH 6.0 Ur Specific [place] 1.010 Urine Protein Negative Urine Glucose (UA) Normal Urine Ketones Negative Urine Blood Negative Urine Nitrate Positive H Urine Bilirubin Negative Urine Urobilinogen 4.0 H Ur Leukocyte Esterase 2+ H Urine WBC (Auto) 23 H Urine RBC (Auto) 2 Ur Squamous Epith Cells 1 Urine Bacteria Many H Urine HCG, Qual Negative Assessment & Plan - Assessment and Plan (Free Text) Assessment: 28 y/o F with recent sickle cell crisis now presenting with diffuse pain likely to be from sickle cell pain crisis. Normal CXR, no signs of stroke, no fever, abdomen is soft and no n/v. Limbs warm, well perfused. Vital Signs WNL. Cons ulted for pain managment. Currently patient is receiving 2mg IV dilaudid every 4 hours PRN with good relief but her pain then returns 10/10 before her next PRN dose is due. She denies any drowsiness at this dose. On exam patient was initially in 10/10 pain diffusely but after receiving 2mg IV hydromorphone was comfortable, awake, and talking on cell phone. -change dilaudid dose to 2mg IV dilaudid every 3h PRN -if no renal insufficiency toradol 30mg IV 6 hours PRN -start home dose oxycodone tomorrow 9am and decrease hydromorphone IV PRN dose according to pain level and drowsiness -IVF, O2 -bowel regimen if needed -we will follow with you
[2018-12-28] MEDS: DiphenhydrAMINE 50 mg/ml Inj IVP PRN ×3 (02:45→20:31)
[2018-12-28] MEDS: Dextrose 5%/0.45% NS 1,000 ML IV SCH ×4 (04:30→19:30)
[2018-12-28] MEDS: HYDROmorphone 1 mg/ml ISec IVP PRN ×4 (07:44→20:32)
[2018-12-28 17:03] LABS: BASO # 0.1 K/uL (0.0-0.2); EOS # 0.4 K/uL (0.0-0.7); EOS % 3.3 % (0.0-4.0); HEMOGLOBIN 9.6 g/dL (11.0-16.0); LYMPH # 3.5 K/uL (1.0-4.3); LYMPH % 31.6 % (20.0-40.0); MEAN CELL VOLUME 100.8 fL (81.0-99.0); MEAN CORPUSCULAR HEMOGLOBIN 35.5 pg (27.0-31.0); MEAN CORPUSCULAR HGB CONC 35.2 g/dL (33.0-37.0); MEAN PLATELET VOLUME 7.4 fL (7.2-11.7); MONO # 1.3 K/uL (0.0-0.8); MONO % 11.8 % (0.0-10.0); NEUT # 5.8 K/uL (1.8-7.0); NEUT % 52.3 % (50.0-75.0); RBC 2.69 Mil/uL (3.80-5.20); RED CELL DISTRIBUTION WIDTH 20.7 % (11.5-14.5)
[2018-12-28 17:15] LABS: BLOOD UREA NITROGEN 6 mg/dL (7-17); CALCIUM 8.3 mg/dl (8.6-10.4); GFR NON-AFRICAN AMERICAN > 60
--- NOTE | 2018-12-28 18:51 | CP.PCM.PN ---
Subjective - Date & Time of Evaluation Date of Evaluation: 12/28/18 - Subjective Subjective: patient examined today no nausea no vomiting no dizziness no diarrhea no fever no shortness of breath Objective - Vital Signs/Intake and Output Vital Signs (last 24 hours): Temp Pulse Resp BP Pulse Ox 98.6 F 97 H 20 136/91 H 99 12/28/18 15:00 12/28/18 15:00 12/28/18 15:00 12/28/18 15:00 12/28/18 15:00 Intake and Output: 12/28/18 12/28/18 06:59 18:59 Intake Total 1545 1700 Balance 1545 1700 - Medications Medications: Current Medications Diphenhydramine HCl (Benadryl) 25 mg IVP Q6 PRN PRN Reason: Other Last Admin: 12/28/18 11:53 Dose: 25 mg Folic Acid (Folic Acid) 1 mg PO DAILY [facility] Last Admin: 12/28/18 10:52 Dose: 1 mg Hydromorphone HCl (Dilaudid) 2 mg IVP Q4H PRN PRN Reason: Pain, severe (8-10) Last Admin: 12/28/18 16:20 Dose: 2 mg Dextrose/Sodium Chloride (Dextrose 5%/0.45% Ns 1000 Ml) 1,000 mls @ 150 mls/hr IV .Q6H40M [facility] Last Admin: 12/28/18 10:52 Dose: 150 mls/hr Ketorolac Tromethamine (Toradol) 30 mg IVP Q6 [facility] Last Admin: 12/28/18 17:17 Dose: 30 mg - Labs Labs: 12/28/18 16:55 12/28/18 16:55 - Constitutional Appears: Well - Head Exam Head Exam: ATRAUMATIC, NORMAL INSPECTION, NORMOCEPHALIC - Eye Exam Eye Exam: EOMI, Normal appearance, PERRL Pupil Exam: NORMAL ACCOMODATION, PERRL - ENT Exam ENT Exam: Mucous Membranes Moist, Normal Exam - Neck Exam Neck Exam: Full ROM, Normal Inspection. absent: Lymphadenopathy - Respiratory Exam Respiratory Exam: Decreased Breath Sounds - Cardiovascular Exam Cardiovascular Exam: REGULAR RHYTHM, +S1, +S2 - GI/Abdominal Exam GI & Abdominal Exam: Soft, Diminished Bowel Sounds - Rectal Exam Rectal Exam: Deferred - Neurological Exam Neurological Exam: Oriented x3 Assessment and Plan - Assessment and Plan (Free Text) Plan: Moderate complexity of care plan discussed with patient medications reviewed labs and vitals reviewed benadryl dextrose 5% dilaudid toradol folic acid
[2018-12-29] MEDS: HYDROmorphone 1 mg/ml ISec IVP PRN ×3 (00:19→10:06)
[2018-12-29] MEDS: Dextrose 5%/0.45% NS 1,000 ML IV SCH ×3 (00:23→09:17)
[2018-12-29 00:59] VITALS: PULSE 84
[2018-12-29] MEDS: DiphenhydrAMINE 50 mg/ml Inj IVP PRN (04:34)
[2018-12-29 08:18] VITALS: BP 115/72; TEMP 98; O2SAT 98
[2018-12-29] MEDS ORDERED: Pneumococcal 23-Valent Vaccine IM ONE (10:00)
[2018-12-29] MEDS ORDERED: oxyCODONE 30 mg Immediate Release Tab PO SCH (11:44)
[2018-12-29] MEDS ORDERED: HYDROmorphone 1 mg/ml ISec IVP PRN (11:46)
[2018-12-29 11:57] LABS: BASO # 0.1 K/uL (0.0-0.2); BASO % 0.8 % (0.0-2.0); EOS # 0.4 K/uL (0.0-0.7); EOS % 5.3 % (0.0-4.0); HEMOGLOBIN 9.8 g/dL (11.0-16.0); LYMPH # 2.5 K/uL (1.0-4.3); LYMPH % 29.3 % (20.0-40.0); MEAN CELL VOLUME 102.5 fL (81.0-99.0); MEAN CORPUSCULAR HEMOGLOBIN 36.5 pg (27.0-31.0); MEAN CORPUSCULAR HGB CONC 35.6 g/dL (33.0-37.0); MEAN PLATELET VOLUME 7.4 fL (7.2-11.7); MONO # 1.4 K/uL (0.0-0.8); MONO % 16.9 % (0.0-10.0); NEUT % 47.7 % (50.0-75.0); NRBC % 1.1 % (0.0-2.0); RBC 2.69 Mil/uL (3.80-5.20); RED CELL DISTRIBUTION WIDTH 21.3 % (11.5-14.5); WHITE BLOOD COUNT 8.5 K/uL (4.8-10.8)
[2018-12-29] MEDS ORDERED: oxyCODONE 30 mg Immediate Release Tab PO PRN (12:14)
[2018-12-29 12:17] LABS: BLOOD UREA NITROGEN 7 mg/dL (7-17); CALCIUM 8.8 mg/dl (8.6-10.4); GFR NON-AFRICAN AMERICAN > 60
--- NOTE | 2018-12-29 13:41 | CARD ---
APPROVED REPORT Date of service: 12/27/2018 EKG Measurement Heart [id number] <Conclusion> Normal sinus rhythm Nonspecific T wave abnormality Borderline EKG
== END 2018-12-29 13:07 | disposition home or self-care (01) ==
LOC: C.ER 02:42 → C.9E 06:36 → C.3T 07:38
PROVIDERS: ADMIT Internal Medicine Nephrology; ATTEND Internal Medicine Nephrology
DX: D57.00 Hb-SS disease with crisis, unspecified (principal); F12.90 Cannabis use, unspecified, uncomplicated; I10 Essential (primary) hypertension; M06.9 Rheumatoid arthritis, unspecified; M16.12 Unilateral primary osteoarthritis, left hip; Z83.2 Family history of diseases of the blood and blood-forming organs and certain disorders involving the immune mechanism; Z87.442 Personal history of urinary calculi
CPT/HCPCS: 36415; 71046; 80048; 80053; 81001; 84703; 85025; 85044; 93005; 96360; 99285; G0378; J1170; J1200; J1885; J7040; J7042